=== PATIENT | female | born 1945 | race Caucasian/White ===

== ENCOUNTER 2019-03-10 17:41 | Emergency (ER) | payer MEDICAID ==
[~2019-03-10] VITALS: Ht 172.7 cm; Wt 95.0 kg
[2019-03-10] MEDS ORDERED: PANT40TA25 PO (17:43)
[2019-03-10] MEDS ORDERED: FAMO20 PO (17:43)
[2019-03-10] MEDS ORDERED: METO50 PO (17:43)
[2019-03-10] MEDS ORDERED: APIX5TAB PO (17:43)
[2019-03-10 20:31] VITALS: BP 125/60
== END 2019-03-10 21:11 | disposition home or self-care (01) ==
LOC: EMS 17:42
DX: S02.2XXA Fracture of nasal bones, initial encounter for closed fracture (principal); S63.501A Unspecified sprain of right wrist, initial encounter; M54.2 Cervicalgia; K21.9 Gastro-esophageal reflux disease without esophagitis; I10 Essential (primary) hypertension; W01.0XXA Fall on same level from slipping, tripping and stumbling without subsequent striking against object, initial encounter; Y93.01 Activity, walking, marching and hiking; Y92.89 Other specified places as the place of occurrence of the external cause; Y99.8 Other external cause status
CPT/HCPCS: 70450; 70486; 72125